=== PATIENT | male | born 1960 | race African-American/Black ===

== ENCOUNTER 2017-08-14 16:05 | Inpatient (IN) | payer MEDICAID ==
[~2017-08-14] VITALS: Ht 167.6 cm; Wt 77.6 kg
[2017-08-14] MEDS ORDERED: ACETAMINOPHEN 325MG TABLET PO STA (16:19)
[2017-08-14] MEDS ORDERED: SODIUM CHLORIDE 0.9% 1000ML BAG (SEPSIS BOLUS) IV ONE (16:30)
[2017-08-14 16:55] LABS: HEMATOCRIT. 32.2 % (42.0-52.0); HEMOGLOBIN. 10.5 g/dL (14.0-18.0); MEAN CORPUSCULAR HEMOGLOBIN 26.4 pg (28.0-32.0); MEAN CORPUSCULAR VOLUME 80.9 fL (80.0-94.0); MEAN PLATELET VOLUME 8.2 fl (7.4-10.4); PLATELET 510 x1000/uL (130-400); RED BLOOD CELL COUNT 3.98 mill/uL (4.7-6.1); RED CELL DISTRIBUTION WIDTH 14.9 % (11.6-14.6)
[2017-08-14 16:56] LABS: CHLORIDE 92 mEq/L (98-107); INR 1.2; PROTHROMBIN TIME 12.4 sec (9.4-11.6)
[2017-08-14 17:41] LABS: PLATELET ESTIMATE INCREASED
[2017-08-14] MEDS ORDERED: PIPERACILLIN/TAZ 3.375G PREMIX 50 ML IV ONE (17:45)
[2017-08-14] MEDS ORDERED: KCL 10MEQ/50ML PREMIX 50 ML IV ONE (17:45)
[2017-08-14] MEDS ORDERED: VANCOMYCIN 1 G PREMIX 200 ML IV SCH ×2 (17:45→22:00)
[2017-08-14] MEDS ORDERED: INSULIN REGULAR (HUMULIN R) UD 100 UNITS/ML SYR SUBCUT ONE (17:45)
[2017-08-14] MEDS ORDERED: INSULIN REGULAR (HUMULIN R) 300UNITS/3ML SUBCUT SCH (19:03)
[2017-08-14] MEDS ORDERED: KCL 10MEQ/50ML PREMIX 50 ML IV SCH (21:52)
[2017-08-14] MEDS ORDERED: DEXTROSE 50% WATER 50ML SYRINGE IV PRN (22:00)
[2017-08-14] MEDS ORDERED: MAGNESIUM/ALUMINUM HYDROXIDE/SIMETHICONE 30ML UDC PO PRN (22:00)
[2017-08-14] MEDS ORDERED: DOCUSATE SODIUM 100MG CAPSULE PO PRN (22:00)
[2017-08-14] MEDS ORDERED: HYDROCODONE/ACETAMINOPHEN 5/325MG TABLET PO PRN (22:00)
[2017-08-14] MEDS ORDERED: ONDANSETRON HCL 4MG/2ML VIAL IV PRN (22:00)
[2017-08-14] MEDS ORDERED: ACETAMINOPHEN 650MG/20.3ML UDC GT PRN (22:00)
[2017-08-14] MEDS ORDERED: ACETAMINOPHEN 650MG SUPP PR PRN (22:00)
[2017-08-14] MEDS ORDERED: IPRATROPIUM/ALBUTEROL 0.5-3(2.5)MG/3ML NEB INH PRN (22:00)
[2017-08-14] MEDS ORDERED: GUAIFENESIN 200MG/10ML SUGAR FREE UDC PO PRN (22:00)
[2017-08-14] MEDS ORDERED: DIPHENHYDRAMINE 50MG/ML VIAL IV PRN (22:00)
[2017-08-14] MEDS ORDERED: NA PHOS,M-B/NA PHOS,DI-BA ENEMA 118ML PR PRN (22:00)
[2017-08-14] MEDS ORDERED: POTASSIUM CHLORIDE 20MEQ TABLET SR PO SCH (22:15)
[2017-08-14 22:24] LABS: CREATINE KINASE MB FRACTION 1.4 ng/mL (0.5-3.6)
[2017-08-14 22:37] LABS: CLARITY URINE CLOUDY (CLEAR); COLOR URINE YELLOW (YELLOW); KETONES URINE NEGATIVE (NEGATIVE); LEUKOCYTE ESTERASE URINE NEGATIVE (NEGATIVE); NITRITE URINE NEGATIVE (NEGATIVE); OCCULT BLOOD URINE 1+ (NEGATIVE); PH URINE 6.5 (4.5-8.0); PROTEIN URINE 1+ (NEGATIVE); SPECIFIC GRAVITY URINE 1.028 (1.005-1.030)
[2017-08-14 22:55] LABS: *AMPHETAMINES SCREEN URINE NEGATIVE (NEGATIVE); *BARBITURATES SCREEN URINE NEGATIVE (NEGATIVE); *COCAINE SCREEN URINE NEGATIVE (NEGATIVE)
[2017-08-14 22:56] LABS: *BENZODIAZEPINES SCREEN URINE NEGATIVE (NEGATIVE); CANNABINOID URINE SCREEN NEGATIVE (NEGATIVE); METHADONE URINE SCREEN NEGATIVE (NEGATIVE); OPIATES URINE SCREEN NEGATIVE (NEGATIVE); PHENCYCLIDINE URINE SCREEN NEGATIVE (NEGATIVE)
[2017-08-14] MEDS: CLONIDINE 0.1MG TABLET PO PRN (23:31)
[2017-08-15] VITALS (9 sets, daily range): BP systolic 113–173; BP diastolic 67–99
[2017-08-15] MEDS ORDERED: MORPHINE SULFATE 4 MG/ML CPJ (NOT FOR IM USE) IV PRN ×2 (01:04→01:05)
[2017-08-15] MEDS ORDERED: VANCOMYCIN 1 G PREMIX 200 ML IV SCH (03:00)
[2017-08-15] MEDS: PIPERACILLIN/TAZ 3.375G PREMIX 50 ML IV SCH ×3 (03:21→21:12)
[2017-08-15] MEDS: SODIUM CHLORIDE 0.9% INJ 3ML FLUSH IVF SCH ×3 (06:20→21:23)
[2017-08-15] MEDS: BLOOD SUGAR DIAGNOSTIC STRIP TEST SCH ×4 (06:56→20:56)
[2017-08-15] MEDS: INSULIN LISPRO 100 UNITS/ML SUBCUT SCH ×4 (07:20→21:24)
[2017-08-15] MEDS: ENOXAPARIN 40MG/0.4ML SYR SUBCUT SCH (08:45)
[2017-08-15 10:46] LABS: BASOPHILS % 0.6 % (0.0-2.0); EOSINOPHILS % 0.3 % (0.0-5.0); LYMPHOCYTES % 7.1 % (20.0-50.0); MEAN CORPUSCULAR HEMOGLOBIN 26.6 pg (28.0-32.0); MEAN CORPUSCULAR VOLUME 79.9 fL (80.0-94.0); MEAN PLATELET VOLUME 8.2 fl (7.4-10.4); MONOCYTES % 5.8 % (2.0-8.0); NEUTROPHILS % 86.2 % (40.0-76.0); PLATELET 458 x1000/uL (130-400); RED BLOOD CELL COUNT 3.38 mill/uL (4.7-6.1); RED CELL DISTRIBUTION WIDTH 14.6 % (11.6-14.6)
[2017-08-15] MEDS ORDERED: PERMETHRIN 5% CREAM 60GM TOP SCH (11:00)
[2017-08-15 11:25] LABS: CHLORIDE 98 mEq/L (98-107)
[2017-08-15 11:33] LABS: HDL CHOLESTEROL 25 mg/dL (40-59); LDL CHOLESTEROL 61 mg/dL (5-100)
[2017-08-15 11:37] LABS: CREATINE KINASE MB FRACTION 0.8 ng/mL (0.5-3.6)
[2017-08-15] MEDS: CLONIDINE 0.1MG TABLET PO PRN (12:30)
[2017-08-15] MEDS: VANCOMYCIN 1 G PREMIX 200 ML IV SCH ×2 (13:41→22:20)
[2017-08-15] MEDS ORDERED: POTASSIUM CHLORIDE 20MEQ TABLET SR PO PRN (16:45)
[2017-08-16] VITALS (12 sets, daily range): BP systolic 122–169; BP diastolic 70–100
[2017-08-16] MEDS: PIPERACILLIN/TAZ 3.375G PREMIX 50 ML IV SCH ×3 (05:02→22:00)
[2017-08-16] MEDS: VANCOMYCIN 1 G PREMIX 200 ML IV SCH (05:49)
[2017-08-16] MEDS: SODIUM CHLORIDE 0.9% INJ 3ML FLUSH IVF SCH ×3 (06:19→22:01)
[2017-08-16] MEDS: BLOOD SUGAR DIAGNOSTIC STRIP TEST SCH ×4 (06:19→21:22)
[2017-08-16] MEDS: ENOXAPARIN 40MG/0.4ML SYR SUBCUT SCH (08:39)
[2017-08-16] MEDS: INSULIN LISPRO 100 UNITS/ML SUBCUT SCH ×4 (08:40→22:01)
[2017-08-16] MEDS: VANCOMYCIN 750 MG PREMIX 150 ML IV SCH (17:15)
[2017-08-16 21:44] LABS: BASOPHILS % 0.9 % (0.0-2.0); EOSINOPHILS % 0.4 % (0.0-5.0); HEMATOCRIT. 28.1 % (42.0-52.0); HEMOGLOBIN. 9.4 g/dL (14.0-18.0); LYMPHOCYTES % 10.9 % (20.0-50.0); MEAN CORPUSCULAR HEMOGLOBIN 26.6 pg (28.0-32.0); MEAN CORPUSCULAR VOLUME 79.5 fL (80.0-94.0); MEAN PLATELET VOLUME 7.9 fl (7.4-10.4); MONOCYTES % 7.7 % (2.0-8.0); NEUTROPHILS % 80.1 % (40.0-76.0); PLATELET 492 x1000/uL (130-400); RED BLOOD CELL COUNT 3.54 mill/uL (4.7-6.1); RED CELL DISTRIBUTION WIDTH 14.8 % (11.6-14.6)
[2017-08-16 21:47] LABS: CHLORIDE 98 mEq/L (98-107)
[2017-08-16] MEDS ORDERED: POTASSIUM CHLORIDE 20MEQ TABLET SR PO NR (23:11)
[2017-08-16] MEDS ORDERED: SODIUM CHLORIDE 0.9% 1000ML BAG (SEPSIS BOLUS) IV NR (23:11)
[2017-08-17] VITALS (13 sets, daily range): BP systolic 124–173; BP diastolic 73–107
[2017-08-17] MEDS: VANCOMYCIN 750 MG PREMIX 150 ML IV SCH ×3 (01:54→17:22)
[2017-08-17] MEDS: ACETAMINOPHEN 325MG TABLET PO PRN ×2 (01:54→22:45)
[2017-08-17] MEDS: SODIUM CHLORIDE 0.9% INJ 3ML FLUSH IVF SCH ×3 (05:26→22:57)
[2017-08-17] MEDS: PIPERACILLIN/TAZ 3.375G PREMIX 50 ML IV SCH ×3 (05:26→22:44)
[2017-08-17] MEDS: BLOOD SUGAR DIAGNOSTIC STRIP TEST SCH ×4 (06:12→21:00)
[2017-08-17 06:31] LABS: BASOPHILS % 1.1 % (0.0-2.0); EOSINOPHILS % 0.5 % (0.0-5.0); HEMOGLOBIN. 8.7 g/dL (14.0-18.0); LYMPHOCYTES % 9.8 % (20.0-50.0); MEAN CORPUSCULAR HEMOGLOBIN 26.9 pg (28.0-32.0); MEAN CORPUSCULAR VOLUME 80.2 fL (80.0-94.0); MEAN PLATELET VOLUME 8.4 fl (7.4-10.4); MONOCYTES % 7.9 % (2.0-8.0); NEUTROPHILS % 80.7 % (40.0-76.0); PLATELET 457 x1000/uL (130-400); RED BLOOD CELL COUNT 3.24 mill/uL (4.7-6.1); RED CELL DISTRIBUTION WIDTH 14.7 % (11.6-14.6)
[2017-08-17] MEDS: ENOXAPARIN 40MG/0.4ML SYR SUBCUT SCH (08:30)
[2017-08-17] MEDS: METOPROLOL TARTRATE 25MG TABLET PO SCH ×2 (08:31→22:46)
[2017-08-17] MEDS: INSULIN LISPRO 100 UNITS/ML SUBCUT SCH ×4 (08:32→22:55)
[2017-08-17] MEDS: CLONIDINE 0.1MG TABLET PO PRN (17:55)
[2017-08-18] VITALS (10 sets, daily range): BP systolic 123–160; BP diastolic 72–99
[2017-08-18] MEDS: METRONIDAZOLE 500 MG PREMIX 100 ML IV SCH ×3 (01:09→16:23)
[2017-08-18] MEDS ORDERED: CEFTRIAXONE 2 G in DEXTROSE 5% WATER 50 ML IV SCH ×4 (02:00)
[2017-08-18] MEDS: CEFTRIAXONE 2 G in DEXTROSE 5% WATER 50 ML IV SCH (04:01)
[2017-08-18] MEDS: VANCOMYCIN 750 MG PREMIX 150 ML IV SCH ×2 (04:52→10:20)
[2017-08-18] MEDS: SODIUM CHLORIDE 0.9% INJ 3ML FLUSH IVF SCH ×3 (06:03→21:05)
[2017-08-18] MEDS: BLOOD SUGAR DIAGNOSTIC STRIP TEST SCH ×4 (06:09→20:34)
[2017-08-18 07:06] LABS: BASOPHILS % 0.8 % (0.0-2.0); EOSINOPHILS % 0.5 % (0.0-5.0); LYMPHOCYTES % 7.8 % (20.0-50.0); MEAN CORPUSCULAR HEMOGLOBIN 26.6 pg (28.0-32.0); MEAN CORPUSCULAR VOLUME 79.7 fL (80.0-94.0); MEAN PLATELET VOLUME 8.3 fl (7.4-10.4); NEUTROPHILS % 83.9 % (40.0-76.0); PLATELET 465 x1000/uL (130-400); RED BLOOD CELL COUNT 3.38 mill/uL (4.7-6.1); RED CELL DISTRIBUTION WIDTH 14.9 % (11.6-14.6)
[2017-08-18] MEDS: INSULIN LISPRO 100 UNITS/ML SUBCUT SCH ×4 (07:20→21:04)
[2017-08-18] MEDS: METOPROLOL TARTRATE 25MG TABLET PO SCH ×2 (08:49→21:04)
[2017-08-18] MEDS: ENOXAPARIN 40MG/0.4ML SYR SUBCUT SCH (09:00)
[2017-08-18] MEDS ORDERED: LIDOCAINE HCL/PF 1% 10 MG/ML 5ML VIAL ONE (11:14)
[2017-08-18] MEDS ORDERED: ALBUMIN HUMAN 12.5G/250ML (5%) IV ONE (12:52)
[2017-08-18] MEDS ORDERED: VANCOMYCIN HCL 500 MG/VIAL ONE (12:55)
[2017-08-18] MEDS ORDERED: BACITRACIN ZINC 15GM TUBE TOP ONE (12:56)
[2017-08-18] MEDS ORDERED: GLYCOPYRROLATE 0.2 MG/ML 2ML VIAL ONE (13:00)
[2017-08-18] MEDS ORDERED: METOCLOPRAMIDE HCL 10MG/2ML VIAL ONE (13:00)
[2017-08-18] MEDS ORDERED: HYDROCODONE/ACETAMINOPHEN 10/325MG TABLET PO PRN (13:00)
[2017-08-18] MEDS ORDERED: PIPERACILLIN/TAZ 2.25G PREMIX 50 ML IV ONE (13:00)
[2017-08-18] MEDS ORDERED: MIDAZOLAM HCL 2 MG/2 ML VIAL ONE (13:00)
[2017-08-18] MEDS ORDERED: FENTANYL CITRATE/PF 50MCG/ML 2ML VIAL ONE ×2 (13:00→14:14)
[2017-08-18] MEDS ORDERED: PROPOFOL 200MG/20ML VIAL IV ONE (13:00)
[2017-08-18] MEDS ORDERED: HYDROCODONE/ACETAMINOPHEN 5/325MG TABLET PO PRN (13:00)
[2017-08-18] MEDS ORDERED: SUCCINYLCHOLINE CHLORIDE 200MG/10ML VIAL IV ONE (13:00)
[2017-08-18] MEDS ORDERED: ONDANSETRON HCL 4MG/2ML VIAL ONE (13:00)
[2017-08-18] MEDS ORDERED: EPHEDRINE SULFATE 50MG/ML VIAL ONE (13:01)
[2017-08-18] MEDS ORDERED: PHENYLEPHRINE HCL 10 MG/ML 1ML (IV VIAL) IV ONE (13:06)
[2017-08-18] MEDS ORDERED: [UNRECOGNIZED DRUG - MIXTURE] IV SCH (13:15)
[2017-08-18] MEDS ORDERED: LABETALOL HCL 5MG/ML VIAL 20ML IV ONE (14:30)
[2017-08-18] MEDS ORDERED: SODIUM CHLORIDE 0.9% 1,000 ML IV ONE (14:41)
[2017-08-18] MEDS ORDERED: ONDANSETRON HCL 4MG/2ML VIAL IV PRN (14:45)
[2017-08-18] MEDS ORDERED: HYDROMORPHONE HCL/PF 2MG/ML CPJ IV PRN (14:45)
[2017-08-18] MEDS ORDERED: MEPERIDINE HCL/PF 25MG/ML CPJ IV PRN (14:45)
[2017-08-19] VITALS (8 sets, daily range): BP systolic 142–178; BP diastolic 81–100
[2017-08-19] MEDS: METRONIDAZOLE 500 MG PREMIX 100 ML IV SCH ×3 (01:02→17:02)
[2017-08-19] MEDS: CEFTRIAXONE 2 G in DEXTROSE 5% WATER 50 ML IV SCH (02:55)
[2017-08-19] MEDS: BLOOD SUGAR DIAGNOSTIC STRIP TEST SCH ×4 (06:44→21:27)
[2017-08-19] MEDS: SODIUM CHLORIDE 0.9% INJ 3ML FLUSH IVF SCH ×2 (06:50→16:38)
[2017-08-19] MEDS: CLONIDINE 0.1MG TABLET PO PRN ×2 (07:48→21:13)
[2017-08-19] MEDS: INSULIN LISPRO 100 UNITS/ML SUBCUT SCH ×5 (07:49→21:20)
[2017-08-19] MEDS: ENOXAPARIN 40MG/0.4ML SYR SUBCUT SCH (08:40)
[2017-08-19] MEDS ORDERED: VANCOMYCIN 1 G PREMIX 200 ML IV SCH (11:00)
[2017-08-19] MEDS: METOPROLOL TARTRATE 25MG TABLET PO SCH ×2 (11:06→21:14)
[2017-08-20] MEDS: METRONIDAZOLE 500 MG PREMIX 100 ML IV SCH ×3 (01:04→18:05)
[2017-08-20 04:00] VITALS: BP 153/87
[2017-08-20] MEDS ORDERED: VANCOMYCIN 1 G PREMIX 200 ML IV SCH (06:00)
[2017-08-20] MEDS: BLOOD SUGAR DIAGNOSTIC STRIP TEST SCH ×3 (06:33→18:06)
[2017-08-20 07:12] LABS: BASOPHILS % 1.4 % (0.0-2.0); EOSINOPHILS % 1.7 % (0.0-5.0); HEMATOCRIT. 26.3 % (42.0-52.0); HEMOGLOBIN. 8.9 g/dL (14.0-18.0); LYMPHOCYTES % 13.9 % (20.0-50.0); MEAN PLATELET VOLUME 7.7 fl (7.4-10.4); MONOCYTES % 9.3 % (2.0-8.0); NEUTROPHILS % 73.7 % (40.0-76.0); PLATELET 448 x1000/uL (130-400); RED BLOOD CELL COUNT 3.29 mill/uL (4.7-6.1)
[2017-08-20 08:00] VITALS: BP 157/87
[2017-08-20] MEDS: METOPROLOL TARTRATE 25MG TABLET PO SCH (08:31)
[2017-08-20] MEDS: INSULIN LISPRO 100 UNITS/ML SUBCUT SCH ×2 (08:33→16:33)
[2017-08-20] MEDS: ENOXAPARIN 40MG/0.4ML SYR SUBCUT SCH (09:00)
[2017-08-20 12:00] VITALS: BP 151/82
[2017-08-20 16:00] VITALS: BP_SYST 144; BP_SYST 148; BP_DIAS 80; BP_DIAS 85
[2017-08-20 18:56] VITALS: BP 150/77
[2017-08-20 20:00] VITALS: BP 171/96
== END 2017-08-21 | DRG 710 ==
LOC: ER 16:05 → 3WST 20:21 → EDBEDREQSVC 20:35 → ENRESERV 21:28 → 6EST 08-19 12:20
PROVIDERS: ADMIT Family Medicine; ATTEND Family Medicine
PROC: 02HV33Z Insertion of Infusion Device into Superior Vena Cava, Percutaneous Approach (ICD-10-PCS; 2017-08-18)
PROC: B5181ZA Fluoroscopy of Superior Vena Cava using Low Osmolar Contrast, Guidance (ICD-10-PCS; 2017-08-18)
PROC: B548ZZA Ultrasonography of Superior Vena Cava, Guidance (ICD-10-PCS; 2017-08-18)
PROC: 0Y6H0Z2 Detachment at Right Lower Leg, Mid, Open Approach (ICD-10-PCS; principal; 2017-08-18 12:00)
DX: A41.9 Sepsis, unspecified organism (principal); E43 Unspecified severe protein-calorie malnutrition; N17.9 Acute kidney failure, unspecified; A48.0 Gas gangrene; E11.40 Type 2 diabetes mellitus with diabetic neuropathy, unspecified; E87.5 Hyperkalemia; L03.115 Cellulitis of right lower limb; E11.621 Type 2 diabetes mellitus with foot ulcer; E11.65 Type 2 diabetes mellitus with hyperglycemia; B88.9 Infestation, unspecified; I10 Essential (primary) hypertension; L97.513 Non-pressure chronic ulcer of other part of right foot with necrosis of muscle; E87.6 Hypokalemia; L02.611 Cutaneous abscess of right foot; D64.9 Anemia, unspecified; L08.9 Local infection of the skin and subcutaneous tissue, unspecified; G93.9 Disorder of brain, unspecified; L97.529 Non-pressure chronic ulcer of other part of left foot with unspecified severity; Z79.4 Long term (current) use of insulin; Z91.19 Patient's noncompliance with other medical treatment and regimen; Z68.27 Body mass index [BMI] 27.0-27.9, adult
CPT/HCPCS: 36415; 36569; 71045; 73630; 76937; 77001; 80048; 80053; 80061; 80202; 80305; 81003; 82553; 82962; 83036; 83605; 84145; 85025; 85610; 86850; 86900; 87040; 87070; 87077; 87086; 87186; 87205; 93005; 93970; 96365; 96366; 96368; 96372; 97163; 97530; 99291; C1725; J0330; J0696; J1170; J1650; J1815; J2250; J2370; J2405; J2543; J2704; J2765; J3010; J3370; J3480; J3490; J7030; J7040; J7060; P9041